=== PATIENT | male | born 1965 | race African-American/Black ===

== ENCOUNTER 2022-06-24 16:36 | Emergency (ER) | payer BC ==
[~2022-06-24] VITALS: Ht 172.7 cm; Wt 86.2 kg
[2022-06-24] MEDS ORDERED: PRED20TA PO ×2 (19:58→20:25)
[2022-06-24] MEDS ORDERED: CODE10LI PO ×2 (19:58→20:25)
[2022-06-24] MEDS ORDERED: predniSONE 50 MG TABLET ONE (20:06)
[2022-06-24] MEDS ORDERED: predniSONE 50 MG TABLET PO ONE (20:15)
--- NOTE | 2022-06-24 20:24 | NUR ---
Patient discharged to home in stable condition. Written and verbal after care instructions given. Patient verbalizes understanding of instructions. Stressed follow up or return to ER for worsening s/s. Patient out of ER with steady gait, no acute signs of distress, VSS, all belongings taken, provided with copy of lab and xray results.
[2022-06-24 20:25] VITALS: BP 143/92
== END 2022-06-24 20:25 | disposition home or self-care (01) ==
LOC: ER 16:42
DX: J20.9 Acute bronchitis, unspecified (principal); Z20.822 Contact with and (suspected) exposure to COVID-19
CPT/HCPCS: 99284; 71045; 87426; J7512; A4663

== ENCOUNTER 2025-05-22 00:33 | Emergency (ER) | payer BC ==
[~2025-05-22] VITALS: Ht 172.7 cm; Wt 79.4 kg
[~2025-05-22 00:33] MED LIST: CODE10LI PO; PRED20TA PO
[2025-05-22] MEDS ORDERED: BACITRACIN ZINC OINT 15 GM TUBE ONE (02:19)
[2025-05-22] MEDS ORDERED: LIDOCAINE 2%-EPI 1:100,000 20 ML VIAL ONE (02:19)
[2025-05-22] MEDS: LIDOCAINE 2%-EPI 1:100,000 20 ML VIAL IJ ONE (02:39)
[2025-05-22] MEDS: NEOMY/BACITRA/POLYMYXIN B OINT UD PACKET TP ONE (02:39)
[2025-05-22 02:45] VITALS: BP 138/80
[2025-05-22] MEDS ORDERED: AMOX-430 PO (03:00)
[2025-05-22] MEDS: AMOXICILLIN-CLAVUL 875-125MG TABLET PO ONE (03:03)
[2025-05-22 03:10] VITALS: BP 141/82; O2SAT 99
== END 2025-05-22 03:05 | disposition home or self-care (01) ==
LOC: ER 00:47
DX: L03.011 Cellulitis of right finger (principal); Z79.52 Long term (current) use of systemic steroids; Z88.7 Allergy status to serum and vaccine
CPT/HCPCS: A4606; A4663

== ENCOUNTER 2025-06-10 00:17 | Emergency (ER) | payer BC ==
[~2025-06-10] VITALS: Ht 172.7 cm; Wt 79.8 kg
[~2025-06-10 00:17] MED LIST changes: +AMOX-430 PO
[2025-06-10 01:00] VITALS: BP 112/78
[2025-06-10 02:04] VITALS: BP 112/78; O2SAT 94
== END 2025-06-10 02:04 | disposition home or self-care (01) ==
LOC: ER 00:29
DX: M79.644 Pain in right finger(s) (principal); Z79.52 Long term (current) use of systemic steroids; Z88.7 Allergy status to serum and vaccine; Z60.2 Problems related to living alone
CPT/HCPCS: A4606; A4663